=== PATIENT | male | born 1965 | race Caucasian/White ===

== ENCOUNTER → 2018-05-29 13:10 | Outpatient (CLI) | payer OTHER, SELFPAY ==
[2018-05-29 13:59] LABS: Cholesterol 177 mg/dL (200); Creatinine, Serum 0.85 mg/dL (0.70-1.30); EST Glomerular Filtration Rate 100 mL/min (>60); Est Glom Filt Rate - Afr Amer 121 mL/min (>60); Glucose 82 mg/dL (74-106); High Density Lipoprotein 67 mg/dL; Triglycerides 44 mg/dL; Very Low Density Lipoprotein 9 mg/dL (5-40)
[2018-05-29 21:21] LABS: Xtra Tube EP Lab EXTRA TUBE
== END ==
PROVIDERS: Family Provider Family Medicine; PCP Family Medicine; Referring Provider Family Medicine; Visit Provider Family Medicine
DX: Z00.00 Encounter for general adult medical examination without abnormal findings (principal)
CPT/HCPCS: 36415; 80061; 82565; 82947

== ENCOUNTER → 2020-04-17 09:12 | Outpatient (CLI) | payer OTHER, SELFPAY ==
[2016-03-12 08:08] VITALS: BMI 20.9
[2020-04-17 10:14] LABS: Cholesterol 231 mg/dL (200); Creatinine, Serum 0.97 mg/dL (0.70-1.30); EST Glomerular Filtration Rate 86 mL/min (>60); Est Glom Filt Rate - Afr Amer 104 mL/min (>60); High Density Lipoprotein 79 mg/dL; Triglycerides 66 mg/dL; Very Low Density Lipoprotein 13 mg/dL (5-40)
== END ==
PROVIDERS: PCP Family Medicine; Referring Provider Family Medicine; Visit Provider Family Medicine
DX: Z13.220 Encounter for screening for lipoid disorders (principal)
CPT/HCPCS: 36415; 80061; 82565

== ENCOUNTER 2021-05-06 10:23 | Day surgery (SDC) | payer BC, SELFPAY ==
[2021-02-08 08:52] VITALS: BMI 22.3
--- NOTE | 2021-05-03 16:09 | EKG12_ITS ---
Test Reason : PRE-OP Blood Pressure : / mmHG Vent. Rate : 062 BPM Atrial Rate : 062 BPM P-R Int : 134 ms QRS Dur : 100 ms QT Int : 412 ms P-R-T Axes : 074 087 071 degrees QTc Int : 418 ms Normal sinus rhythm with sinus arrhythmia Normal ECG Confirmed by AGUEDA LI, CHRIS ([id number]), online editor BOBBY CONLEY ([id number]) on 05/04/2021 9:43:26 AM Referred By: Mike Sweeney Confirmed By:CHRIS ROMEO MD
[2021-05-03 17:05] LABS: Hematocrit 39.6 % (40-54); Hemoglobin 13.8 g/dL (13.0-16.5); Mean Corp Hgb Conc 34.8 g/dL (32-36); Mean Corpuscular Hgb 30.5 pg (27.0-32.0); Mean Corpuscular Volume 87.4 fL (80-94); Mean Platelet Vol. 9.7 fl (6.2-12.0); Platelet Count 273 K/mm3 (150-450); RBC Distribution Width CV 11.7 % (11.6-14.6); RBC Distribution Width SD 37.3 fl (35.1-43.9); Red Blood Count 4.53 M/mm3 (4.6-6.2); White Blood Count 5.9 K/mm3 (4.4-11.0)
[2021-05-03 17:38] LABS: Anion Gap 4 (5-15); BUN 14 mg/dL (7-18); BUN/Creat Ratio 15.7 RATIO (10-20); Calcium,Total 9.1 mg/dL (8.5-10.1); Chloride 107 mmol/L (98-107); Creatinine, Serum 0.89 mg/dL (0.70-1.30); EST Glomerular Filtration Rate 94 mL/min (>60); Est Glom Filt Rate - Afr Amer 114 mL/min (>60); Estimated Creatinine Clearance 90.85 ml/min; Glucose 83 mg/dL (74-106); Potassium 3.9 mmol/L (3.5-5.1); Sodium Level 141 mmol/L (136-145)
[2021-05-06] VITALS (9 sets, daily range): BP systolic 114–132; BP diastolic 72–88; PULSE 71–79; RESP 16–18; TEMP 36.3–36.9; O2SAT 97–100; BMI 21.7
--- NOTE | 2021-05-06 10:51 | HP.PCM_ITS ---
History and Physical Date of Admission: 05/06/21 Intake Visit Reasons: update h&p [facility] [place] - Chief Complaint: update H&P Sap Bpc Developer Required: No Is patient in pain?: No Allergies No Known Allergies Allergy (Verified 04/27/21 15:08) Medications ascorbic acid (vitamin C) 1,000 mg tablet 1 g PO Q6H 02/08/21 [History Confirmed 04/27/21] multivitamin 1 tab PO DAILY 02/08/21 [History Confirmed 04/27/21] tamsulosin 0.4 mg capsule 0.4 mg PO DAILY #30 cap 02/08/21 [Rx Confirmed 04/27/21] PFSH Medical History Hemorrhoid Surgical History History of arthroscopic knee surgery History of colonoscopy (~2016) History of eye surgery History of right inguinal hernia repair (~1997) Family History Mother Diabetes Sister Diabetes Social History Smoking Status: Never smoker HPI HPI HPI: DORIS BILLINGSLEY, is a 56 M who presents to the office today for an update history and physical. Patient denies recent hospitalizations or illnesses. Patient denies recent complications or side effects from anesthesia. He denies past cardiac history, myocardial infarction, stroke or blood clots. He denies pulmonary history. Patient's previous history per Dr. Sweeney: DORIS BILLINGSLEY, is a 56 M who presents to the office today for surgical consultation regarding a right inguinal hernia. The patient is referred by his primary care physician Dr Jose Miguel Mccarthy and written copy my surgical consult recommendations will return to him. By patient report he has had a previous remote right inguinal hernia repair. His current complaint with a sharp stabbing pain in the opposite left groin. On clinical exam there was concern for nonreducible left inguinal hernia. The patient is referred for additional evaluation and potential treatment. The patient notes significant discomfort in the left groin particular with sneezing. He will notice bulging by the end of the day. He is able to reduce the area and gets improved comfort. No fever or chills or sweats or nausea or vomiting or change in bowel habits or bright red blood per rectum or melena or constipation ROS General General: No weight change, appetite, fatigue, colon cancer, breast cancer or weakness HEENT HEENT: Yes eye surgery; No difficulty swallowing, eye injury, swollen glands or hoarseness Endo Endocrine: No thyroid disease, diabetes mellitus, thyroid cancer, Hair loss, heat intolerance or cold intolerance Musc Musculoskeletal: No back problems, arthritis, rheumatoid arthritis, gout or joint pain Cardio Cardiovascular: No murmur, pacemaker, heart disease, atrial fibrillation, high blood pressure, heart attack, heart stent, palpitations, shortness of breat with exertion or chest pain Psych Psychiatric: No depression, anxiety or hearing voices Resp Respiratory: No shortness of breath, No sleep apnea, No cough, No COPD, No asthma, No emphysema and No wheezing Gastro Gastrointestinal: No abdominal pain, No nausea or vomiting, No diarrhea, No constipation, No blood in stool, No acid reflux, Yes hemorrhoids, No ulcers, No gallbladder problem and No black,tarry stools Anselmo Hematologic: No blood thinners, No blood disorders, No bleeding, No anemia and No blood clots Neuro Neurologic: No weakness Exam Const General: cooperative, healthy appearing, comfortable and no acute distress [facility] Head: normal to inspection Eyes General: appearance normal, both eyes and all related structures Neck Neck: normal visual inspection Neck mass: No Resp Effort & Inspection: normal respiratory effort Auscultation: clear to auscultation bilaterally Cardio Rate: regular rate Rhythm: regular rhythm GI Inspection: normal to inspection Palpation: soft and hernia (large reducible left inguinal hernia) Auscultation: normal bowel sounds Skin General: no rashes or lesions noted Neuro General: no focal motor deficits and CN's II-XI intact bilaterally Extrem General: normal to inspection Psych Appearance: grossly normal Affect: normal affect COVID (Procedure Consent) Procedure Criteria Procedure Criteria: Yes Elective The surgeon/proceduralist and patient have discussed in detail the risk of exposure to and/or potential harm posed by the COVID-19 virus with having a surgery/procedure at this time versus the risk of delaying the surgery/procedure. It is not possible to know either the risk of delaying the surgery or procedure or chance of getting an infection with perfect accuracy, but a joint decision was made between the patient and the surgeon/proceduralist to proceed at this time with the scheduled surgery/procedure as indicated on the consent form. Assessment and Plan Assessment and Plan (1) Inguinal hernia of left side without obstruction or gangrene: Status: Acute Plan - RACHELLE MeloC: Dr. Sweeney will plan to perform a laparoscopic left inguinal hernia repair with possible mesh and simple umbilical hernia repair. Procedure details, risks and benefits have been explained. Patient has had the opportunity to ask and have questions answered. Patient verbally understands and agrees with the plan. Patient has been prescribed Flomax pre-op which he will begin 1 week prior to the procedure. (2) Umbilical hernia without obstruction or gangrene: Status: Acute Coding Level of Care Code No Charge Diagnoses Inguinal hernia of left side without obstruction or gangrene K40.90 Umbilical hernia without obstruction or gangrene K42.9 I have re-examined the patient. There are no clinical changes since date of exam.
[2021-05-06] MEDS: Lactated Ringers 1,000 ML 100 ML IV ×2 (11:13→12:45)
[2021-05-06] MEDS: Cefazolin 2 GM in 0.9% Normal Saline 100 ML IV (11:22)
--- NOTE | 2021-05-06 11:23 | EX.PCM.DISCH ---
Discharge Instructions Procedure General Surgery Diet Discharge Diet: Light diet - advance as tolerated (if you have questions about your diet instructions, please talk to you doctor.) Activity Discharge Activity: May Not Drive (for 3-5 days or while taking narcotic pain medicine.) May shower in (days): 1 Lifting Restrictions: 10 pounds Dressing / Incision Call your doctor if your incision/area has: Continuous Slow Oozing, Sudden Increased Bleeding, Increased Pain/ Swelling, Increased Redness and Foul Smelling Discharge Call your doctor if you observe: Fever of 101 or Higher Suture Line Care: Avoid Pulling/Pushing and Avoid Pinching/Bending Additional Dressing/Incision Instructions:: Change or remove dressing in 4 days. Leave steri-strips in place for 1 week. Follow Up Care Please Follow Up With: Mike Sweeney MD When: Call [phone] to make an appointment to be seen in about 10 days. Test Results: Test results from this visit will be discussed in further detail at your follow-up appointment, if applicable. Discharge Plan Admission Primary Reason for Your Visit: lEFT INGUINAL HERNIA, UMBILICAL HERNIA Attending Provider: Mike Sweeney Primary Care Provider: Eugenio Tierney Discharge Orders/Prescriptions Prescriptions: New hydrocodone-acetaminophen 5-325 mg tablet 1 tab PO Q6H PRN (Reason: pain) 2 Days Qty: 6 RF: 0 Continued multivitamin Tablet 1 tab PO DAILY RF: 0 ascorbic acid (vitamin C) 1,000 mg tablet 1 g PO DAILY RF: 0 tamsulosin 0.4 mg Capsule 0.4 mg PO DAILY RF: 0 Referrals / Follow Up: Eugenio Tierney MD [Primary Care Provider] - Disposition Disposition (needs filled in before D/C Order can be placed): Home, Self Care
[2021-05-06] MEDS: Bupivacaine Mpf 0.5% 30 ML VIAL (12:47)
--- NOTE | 2021-05-06 12:49 | PCM.OPRPT ---
Problems Associated Problem List Diagnoses (1) Inguinal hernia of left side without obstruction or gangrene: (2) Umbilical hernia without obstruction or gangrene: Report of Operation Date of Procedure: 05/06/21 Pre-Operative Diagnosis: Symptomatic large left inguinal hernia, umbilical hernia Post-Operative Diagnosis: Same Surgery/Procedure Performed:: Laparoscopic left inguinal herniorrhaphy with extra-large Bard 3D max mesh, sutured umbilical herniorrhaphy Bard 3D max extra-large. Reference #[id number], lot number [id number], expiry date 2025-07-20 Description of Surgical Findings:: Timeout and informed consent was obtained. 56-year-old gentleman was taken to the operating placed on the table underwent general endotracheal intubation esthesia. Ancef 2 g were given intravenously. The abdomen and left groin were sterilely prepped and draped. Throughout the procedure 0.5% Marcaine was used as a local anesthetic. Throughout the procedure total 30 cc was utilized. Where appropriate skin sites were preanesthetized. A curvilinear infraumbilical incision was created sharp dissection was performed to identify a small umbilical hernial defect. No significant sac material. Holding sutures of 0 Vicryl placed. Varies needle inserted. Saline drop test performed. The abdomen was insufflated with CO2 to a pressure of 10 mmHg pressure. A 10 mm trocar inserted. 10 mm laparoscope inserted no evidence of any trocar injuries under direct visualization 5 mm ports were placed in the right and left lower quadrant. The patient had evidence of a previous plug repair of a right inguinal hernia and there were adhesions of small bowel to this. There is slightly more distal ileum had a complexity of adhesions of bowel to bowel but did not appear to be obstructed. I felt it was pertinent however to remove the small bowel from its adherent to the mesh. Carefully with shear scissors I was able to manipulate that bowel free with sharp dissection. The bowel was noted to be completely normal and intact there were no enterotomies. I then performed a ileal inguinal nerve block under laparoscopic control in the left groin. The peritoneum was incised carried medially the indirect area identified. A very large hernia sac was encountered. This was dissected free retracting a significant amount from the left scrotum. Gradually and tediously the complete sac was inverted. The direct and indirect spaces identified. A significant amount of dissection had been performed. The patient is very physically active so I elected to place a extra-large mask. That was placed and it nicely fit into position covering direct indirect and femoral areas. The mesh was secured laterally superiorly and medially with secure strap. Excellent positioning was achieved. The peritoneum was then approximated to the peritoneum with secure strap and Hem-o-susi clips. Complete obliteration to the mesh was achieved. The small bowel was again inspected and noted be completely viable and intact. The abdomen was allowed to deflate of the CO2 through the antiviral valve. Trochars were removed. The defect at the umbilicus measured no more than 10 mm size of the trocar. I elected because of the mesh reaction they had in the right groin to simply do a suture repair at the umbilical area. This was performed with simple sutures of 0 Nurolon. Skin edges were approximated with interrupted 4-0 Monocryl subdermal stitches. Steri-Strips Telfa OpSite dressings applied. Sponge and instrument and needle counts were reported the surgeon to be correct. Specimens none. Drains none. Blood loss minimal. The patient was taken to the recovery area in satisfactory addition with operative complication Mike Sweeney M.D., F.A.C.S. Surgeon: Mike Sweeney Type of Anesthesia: General and Local Anesthesiologist: Jose Alberto Nolen
[2021-05-06] MEDS: HYDROcodone Bitartrate/Apap 5/325 Tablet PO (15:24)
== END 2021-05-06 17:01 | disposition home or self-care (01) ==
LOC: SDC 10:27 → AC 10:29
PROVIDERS: PCP Family Medicine; Referring Provider Surgery; Visit Provider Surgery
PROC: (CPT 49650; principal; 2021-05-06 13:10)
DX: K40.90 Unilateral inguinal hernia, without obstruction or gangrene, not specified as recurrent (principal); K42.9 Umbilical hernia without obstruction or gangrene
CPT/HCPCS: 00830; 49585; 49650; 36415; 80048; 85027; 93005; J7120; C1781; J2405

== ENCOUNTER → 2023-10-03 | Outpatient (CLI) | payer OTHER, SELFPAY ==
--- NOTE | 2023-10-03 15:48 | RAD_ITS ---
STUDY: X-RAY - LEFT HAND, ATTENTION THIRD FINGER REASON FOR EXAM: Male, 58 years old. palmar, L middle finger, proximal part of proximal phalanx - 4 mm TECHNIQUE: 3 view(s) of the finger were obtained. COMPARISON: None. FINDINGS: Normal metacarpal head. Normal metacarpophalangeal joint. Normal proximal phalanx. Normal middle phalanx. Normal distal phalanx. Normal proximal interphalangeal joint. Normal distal interphalangeal joint. RAD/Finger(s) Min 2 Views IMPRESSION: Normal x-ray examination of the finger. Electronically Signed: Jozef Muniz MD at 16:48 EDT ,
[2023-10-03 18:49] LABS: ALB/GLOB Ratio 1.5 RATIO (0.9-2.4); AST(SGOT) 22 U/L (15-37); Alanine Aminotransfer ALT/SGPT 32 U/L (16-61); Albumin, Serum 4.1 g/dL (3.2-5.0); Alkaline Phosphatase 47 U/L (45-117); Anion Gap 7 (5-15); BUN 14 mg/dL (7-18); BUN/Creat Ratio 15.3 RATIO (10-20); Calcium,Total 8.9 mg/dL (8.5-10.1); Chloride 108 mmol/L (98-107); Cholesterol 211 mg/dL (200); Creatinine, Serum 0.92 mg/dL (0.70-1.30); EST Glomerular Filtration Rate 90 mL/min (>60); Est Glom Filt Rate - Afr Amer 109 mL/min (>60); Globulin 2.8 g/dL (2.2-4.2); Glucose 91 mg/dL (74-106); High Density Lipoprotein 75 mg/dL; PSA,Total - Annual Screen 0.29 ng/mL (0.00-4.00); Potassium 3.8 mmol/L (3.5-5.1); Protein, Total 6.9 g/dL (6.4-8.2); Sodium Level 141 mmol/L (136-145); Triglycerides 52 mg/dL; Very Low Density Lipoprotein 10 mg/dL (5-40)
== END | disposition home or self-care (01) ==
PROVIDERS: PCP Family Medicine; Referring Provider Family Medicine; Visit Provider Family Medicine
DX: L98.9 Disorder of the skin and subcutaneous tissue, unspecified (principal); E78.00 Pure hypercholesterolemia, unspecified; Z12.5 Encounter for screening for malignant neoplasm of prostate
CPT/HCPCS: 36415; 73140; 80053; 80061; 84153; G0103

== ENCOUNTER → 2023-10-10 | Outpatient (CLI) | payer OTHER, SELFPAY ==
--- NOTE | 2023-10-10 16:22 | US_ITS ---
STUDY: SCROTUM ULTRASOUND REASON FOR EXAM: Male, 58 years old. 1mm lateral upper L testicle TECHNIQUE: Ultrasound evaluation of the scrotum was performed with color Doppler and static aldrich-scale imaging. COMPARISON: None. FINDINGS: RIGHT TESTICLE INTRATESTICULAR: There is a normal size of the right testicle. The right testicle measures 4.4 cm x 3.3 cm x 2.5 cm. There is a homogenous echotexture. There is normal arterial and normal venous vascularity. There is a 2 mm x 2 mm x 1 mm cyst in the superior aspect of the right testicle. EXTRATESTICULAR: The epididymis is normal in size. The epididymis head measures 0.7 cm x 1 cm x 0.8 cm. There is normal vascularity of the epididymis. There is no demonstrated epididymal cystic structure. There is no demonstrated hydrocele. There is no demonstrated varicocele. There is no demonstrated extratesticular mass or cyst. LEFT TESTICLE INTRATESTICULAR: There is a normal size of the left testicle. The left testicle measures 4.3 cm x 3.5 cm x 2.6 cm. There is a homogenous echotexture. There is normal arterial and normal venous vascularity. There is no demonstrated left testicular mass or cyst. EXTRATESTICULAR: The epididymis is normal in size. The epididymis head measures 0.6 cm x 1.1 cm x 0.6 cm. There is normal vascularity of the epididymis. There is a well-defined cystic structure within the epididymis, without internal echoes, consistent with an epididymal cyst. This measures 2 mm x 3 mm x 3 mm. There is a moderate size hydrocele. There is no demonstrated varicocele. There is no demonstrated extratesticular mass or cyst. US/Testicular with Arterial Flow IMPRESSION: Small left epididymal cyst and moderate sized left hydrocele. 2 mm x 2 mm x 1 mm cyst in the superior aspect of the right testicle. Electronically Signed: Jony Blair MD at 12:11 EDT ,
== END | disposition home or self-care (01) ==
LOC: US 16:20
PROVIDERS: PCP Family Medicine; Referring Provider Family Medicine; Visit Provider Family Medicine
DX: N50.89 Other specified disorders of the male genital organs (principal)
CPT/HCPCS: 76870; 93976

== ENCOUNTER → 2024-11-05 | Outpatient (CLI) | payer OTHER, SELFPAY ==
--- NOTE | 2024-11-05 09:54 | ECHOD_ITS ---
Reason For Study Reason For Study: Palpitations, Other Cardiac sounds Procedure This was a 2D Doppler, Color Flow transthoracic echocardiogram. Exam performed in department. Left Ventricle Normal LV size. The left ventricular ejection fraction is 65 %. No regional wall motion abnormalities noted. Right Ventricle Normal RV size. Normal systolic function. Atria Normal left atrium. Normal right atrium. Mitral Valve Normal mitral valve. Tricuspid Valve Normal tricuspid valve. Mild tricuspid valve insufficiency. Aortic Valve Trisinus/trileaflet aortic valve. Pulmonic Valve Normal pulmonic valve. Great Vessels Mildly dilated aortic root. The pulmonary artery is normal size. Inferior vena cava collapse with respiration. Pericardium/Pleural No pericardial effusion. MMode/2D Measurements & Calculations LVIDd: 4.4 cm IVSd: 1.2 cm Ao root diam: 3.9 cm LVIDs: 2.6 cm LVPWd: 1.1 cm RVDd: 3.6 cm FS: 39.8 % LAV(MOD-bp): 34.1 ml LVAd ap4: 30.9 cm2 SV(MOD-sp4): 58.8 ml LAV(MOD-bp) Indexed: 18.4 ml/m2 LVLd ap4: 8.4 cm SI(MOD-sp4): 31.7 ml/m2 LAV(MOD-sp2): 27.9 ml EDV(MOD-sp4): 92.6 ml LAV(MOD-sp4): 29.8 ml EDV(sp4-el): 96.3 ml LVAs ap4: 16.8 cm2 LVLs ap4: 6.9 cm ESV(MOD-sp4): 33.8 ml ESV(sp4-el): 34.4 ml EF(MOD-sp4): 63.5 % EF(sp4-el): 64.3 % SV(sp4-el): 61.9 ml Ao sinus diam: 3.[address] Junction: 3.6 cm LA dimension(2D): 2.8 cm LA A4 area: 13.3 cm2 RA A4 area: 15.8 cm2 Time Measurements MV dec time: 0.23 sec Doppler Measurements & Calculations MV E max deandre: 51.3 cm/sec Lat Peak E' Deandre: 10.4 cm/sec Med Peak E' Deandre: 9.9 cm/sec MV A max deandre: 44.1 cm/sec E/E' lat: 4.9 E/E' med: 5.2 MV E/A: 1.2 MV V2 max: 59.5 cm/sec MV P1/2t max deandre: 60.4 cm/sec Ao V2 max: 86.6 cm/sec MV max P.4 mmHg MV P1/2t: 85.2 msec Ao max P.0 mmHg MV V2 mean: 33.2 cm/sec MV dec slope: 207.5 cm/sec2 Ao V2 mean: 63.6 cm/sec MV mean P.51 mmHg Ao mean P.8 mmHg MV V2 VTI: 22.4 cm MVA(P1/2t): 2.6 cm2 Ao V2 VTI: 20.5 cm AV (velocity ratio): 0.87 LV V1 max: 80.6 cm/sec PA V2 max: 87.9 cm/sec TR max deandre: 205.9 cm/sec LV V1 max P.6 mmHg TR max P.0 mmHg LV V1 mean P.5 mmHg LV V1 mean: 56.8 cm/sec LV V1 VTI: 17.8 cm ECHO/Echo Complete Interpretation Summary Normal LV size. The left ventricular ejection fraction is 65 %. Mild tricuspid valve insufficiency. Mildly dilated aortic root. Ordering Physician: Eugenio Tierney Referring Physician: Eugenio Tierney Performed By: Efra Briggs RCS
== END | disposition home or self-care (01) ==
PROVIDERS: PCP Family Medicine; Referring Provider Family Medicine; Visit Provider Family Medicine
DX: R01.2 Other cardiac sounds (principal); R00.2 Palpitations
CPT/HCPCS: 93306

== ENCOUNTER → 2025-04-02 | Outpatient (CLI) | payer OTHER, SELFPAY ==
[2025-04-02 17:55] LABS: Hematocrit 38.9 % (40-54); Hemoglobin 14.3 g/dL (13.0-16.5); Immature Granulocytes Count 0.010 X10^3/uL (0.0-0.0); Mean Corp Hgb Conc 36.8 g/dL (32-36); Mean Corpuscular Volume 86.3 fL (80-94); Mean Platelet Vol. 10.1 fl (6.2-12.0); NRBC Flagged by Analyzer 0 % (0-5); POSITIVE DIFFERENTIAL YES; Platelet Count 142 K/mm3 (150-450); RBC Distribution Width CV 11.3 % (11.6-14.6); RBC Distribution Width SD 35.5 fl (35.1-43.9); Red Blood Count 4.51 M/mm3 (4.6-6.2); White Blood Count 6.5 K/mm3 (4.4-11.0)
[2025-04-02 18:31] LABS: AST(SGOT) 31 U/L (<=37); Alanine Aminotransfer ALT/SGPT 28 U/L (<=46); Albumin, Serum 4.1 g/dL (3.5-5.0); Alkaline Phosphatase 52 U/L (40-129); Anion Gap 14 (5-15); BUN 12 mg/dL (4-19); BUN/Creat Ratio 13.9 RATIO (10-20); CRP 50.70 mg/L (0.0-3.0); Calcium,Total 8.8 mg/dL (7.6-11.0); Carbon Dioxide 20.2 mmol/L (21.0-32.0); Chloride 98 mmol/L (98-108); Globulin 2.4 g/dL (2.2-4.2); Glucose 122 mg/dL (70-99); Potassium 3.5 mmol/L (3.3-5.1)
[2025-04-05 08:08] LABS: ANTINUCLEAR ANTIBODIES DIRECT Negative (Negative)
== END | disposition home or self-care (01) ==
LOC: MFPLAB 15:39
PROVIDERS: PCP Family Medicine; Visit Provider Family Medicine
DX: R30.9 Painful micturition, unspecified (principal); R68.89 Other general symptoms and signs
CPT/HCPCS: 36415; 80053; 84443; 85025; 85652; 86038; 86140